=== PATIENT | male | born 1965 | race Caucasian/White ===

== ENCOUNTER → 2023-08-27 | Outpatient (CLI) | payer BC ==
--- NOTE | 2023-08-27 19:19 | MR ---
EXAMINATION TYPE: MR iac wo/w con DATE OF EXAM: 08/27/2023 6:08 PM CLINICAL INDICATION:Male, 57 years old with history of H90.A22 SNSRNRL HEAR LOSS, UNI, L EAR, WITH RS TRCD; PHH, Bilateral hearing loss, worse on left side COMPARISON: None TECHNIQUE: Multi planar, multi sequence imaging was performed through the brain. Specialized thin s equences were obtained through the internal auditory canals. Pre-and post gadolinium sequences were obtained. MR contrast: IV Contrast: 8.5 cc Gadavist FINDINGS: The minor-white junctions, ventricular system, and cisterns appear unremarkable. Midline structures s how no abnormality. Diffusion-weighted imaging shows no evidence of restricted diffusion. The suscept ibility weighted images do not reveal any evidence for micro-hemorrhage. The bone marrow signal is within normal limits. Paranasal sinuses and mastoid air cells: Mild scattered paranasal sinus disease. Visualized orbits: Orbital contents are intact. After administration of gadolinium, no abnormal enhancement is seen. Motion limited exam of the IACs. The internal auditory canal sequences demonstrate no significant irregularity. The 7th cranial nerve s, 8 cranial nerves, and cerebellar pontine angles appear unremarkable. After the administration mac olinium, no abnormal enhancement is seen within the internal auditory canals. Vascular loop: None. IMPRESSION: 1. Motion limited exam. No evidence of intracranial mass nor acute/subacute CVA. 2. No evidence of internal auditory canal abnormality.
== END | disposition home or self-care (01) ==
LOC: RADMRIMAIN 17:11
PROVIDERS: ATTEND Otolaryngology
DX: H90.A22 Sensorineural hearing loss, unilateral, left ear, with restricted hearing on the contralateral side (principal); H90.A21 Sensorineural hearing loss, unilateral, right ear, with restricted hearing on the contralateral side
CPT/HCPCS: 70553; A9585